=== PATIENT | female | born 1955 | race Caucasian/White ===

== ENCOUNTER 2019-07-29 10:43 | Day surgery (SDC) | payer MEDICARE, BC ==
[2019-07-29] MEDS ORDERED: *PACU ONLY* KETAMINE HCL 10 MG/ML (20ML) VIAL IV ONE (10:44)
[2019-07-29] MEDS ORDERED: LIDOCAINE 2% MDV (20MG/ML) 20ML VIAL IV ONE (10:44)
--- NOTE | 2019-07-30 12:42 | Operative Note ---
OPERATION: COLONOSCOPY with cold forceps polypectomy. PREOPERATIVE DIAGNOSIS: Family history of colon cancer and Cologuard positive. POSTOPERATIVE DIAGNOSES: 1. Sigmoid diverticulosis. 2. Rectal polyp. PREPARATION QUALITY: Good to excellent. ESTIMATED BLOOD LOSS: Minimum. SPECIMENS: Rectal polyp. COMPLICATIONS: None apparent. PROCEDURE: After informed consent was obtained from the patient, she was placed in the left lateral decubitus position in the endoscopy suite, sedated and monitored by the department of anesthesia. Digital rectal exam was unremarkable. A well-lubricated [id number] colonoscope was inserted into the rectum and advanced to the cecum. Preparation quality was good to excellent. The cecum, cecal bulb, ileocecal valve, appendiceal orifice, ascending colon, transverse colon, and descending colon were free of inflammatory changes, mass lesions, or polyps. The sigmoid colon demonstrated moderate diverticular changes but no inflammation or polyps were seen. The rectum was unremarkable in forward views. I was unable to perform J-turn views due to the short rectum. There was a diminutive polyp removed with a cold forceps. The rectal ampulla deflated, and the endoscope was removed. RECOMMENDATIONS: The patient should follow a high-fiber diet. I recommend a repeat exam in 5 years based on the exam findings as well as her family history. I would not recommend pursuing Cologuard in this patient. As always, thank you for allowing me to participate in the healthcare of your patients. KEVIN
== END 2019-07-29 12:08 | disposition home or self-care (01) ==
LOC: HOP 10:43
PROVIDERS: ATTEND Internal Medicine Gastroenterology
DX: R19.5 Other fecal abnormalities (principal); Z80.0 Family history of malignant neoplasm of digestive organs; K62.1 Rectal polyp; K57.30 Diverticulosis of large intestine without perforation or abscess without bleeding